=== PATIENT | male | born 2000 | race Caucasian/White ===

== ENCOUNTER 2024-02-09 16:04 | Emergency (ER) | payer SELFPAY ==
[2024-02-09 16:07] VITALS: BP 148/88; PULSE 72; TEMP 36.9; O2SAT 100; BMI 25.1
--- NOTE | 2024-02-09 16:37 | ED_ITS ---
HPI - Skin/Abscess/Foreign Bdy General Chief complaint: Skin/Abscess/Foreign Body Stated complaint: Allergic Reaction Time Seen by Provider: 02/09/24 16:24 Source: patient Mode of arrival: walk-in Limitations: no limitations History of Present Illness HPI narrative: Patient is a 23-year-old male who presents to the emergency department for the evaluation of a rash for the last 2 days over the volar forearms and face. He is concerned this may be poison stevie. No medications prior to arrival. He states the rash is itchy, no drainage. No vision loss or eye pain. No extension of the rash to the mouth. Related Data Previous Rx's ?Medication ?Instructions ?Recorded hydroxyzine HCl 25 mg tablet 25 mg PO Q6H PRN itching #20 tabs 02/09/24 methylprednisolone 4 mg tablets in See Rx Instructions .Route 02/09/24 a dose pack (Medrol (Romain)) .COMPLEX #21 ea Allergies Allergy/AdvReac Type Severity Reaction Status Date / Time No Known Drug Allergies Allergy Verified 02/09/24 16:07 Review of Systems ROS Constitutional Denies: fever or chills Ears, nose, mouth, and throat Denies: throat pain or nasal congestion Cardiovascular Denies: chest pain Respiratory Denies: shortness of breath or cough Gastrointestinal Denies: nausea or vomiting Musculoskeletal Denies: back pain Integumentary/Breast Denies: rash Neurological Denies: headache Hematologic/Lymphatic Denies: easy bruising or easy bleeding Exam Narrative Exam Narrative: Gen.: Awake, alert, in no distress Head: Normocephalic, atraumatic ENT: Moist mucous membranes Respiratory: No respiratory distress Extremities: Moves extremities equally Psych: Normal mood and affect Neuro: No focal neuro deficit Skin: Warm, dry, intact; Faint erythematous linear vesicular rash of the bilateral forearms and minimally of the face of the forehead and right lateral orbit. No eyelid edema, no purulence or extension of the rash to the mucous membranes. No crusting or drainage. Constitutional Vital Signs, click to edit/add: Last Vital Signs Temp 98.4 F 02/09/24 16:07 Pulse 72 02/09/24 16:07 Resp 16 02/09/24 16:07 BP 148/88 H 02/09/24 16:07 Pulse Ox 100 02/09/24 16:07 O2 Del Method Room Air 02/09/24 16:07 Course Vital Signs Vital signs: Vital Signs Temperature 98.4 F 02/09/24 16:07 Pulse Rate 72 02/09/24 16:07 Respiratory Rate 16 02/09/24 16:07 Blood Pressure 148/88 H 02/09/24 16:07 Pulse Oximetry 100 02/09/24 16:07 Oxygen Delivery Method Room Air 02/09/24 16:07 Temperature 98.4 F 02/09/24 16:07 Pulse Rate 72 02/09/24 16:07 Respiratory Rate 16 02/09/24 16:07 Blood Pressure 148/88 H 02/09/24 16:07 Pulse Oximetry 100 02/09/24 16:07 Oxygen Delivery Method Room Air 02/09/24 16:07 MDM - Skin/Abscess/Foreign Bdy MDM Narrative Medical decision making narrative: Exam is consistent with contact dermatitis and the patient was started on a Medrol Dosepak and Atarax for home. First dose of prednisone given in the ER. Follow-up with PCP and return to the ER if symptoms change or worsen Medical Records Attestation: I reviewed the patient's medical records. Discharge Plan Discharge Stand Alone Forms: Portal Instructions Chief Complaint: Skin/Abscess/Foreign Body Clinical Impression: Contact dermatitis Patient Disposition: Home, Self-Care Time of Disposition Decision: 16:36 Condition: Good Prescriptions / Home Meds: New hydroxyzine HCl 25 mg tablet 25 mg PO Q6H PRN (Reason: itching) Qty: 20 0RF methylprednisolone [Medrol (Romain)] 4 mg tablets,dose pack See Rx Instructions .ROUTE .COMPLEX Qty: 21 0RF Rx Instructions: Taper as directed Print Language: Japanese Instructions: Contact Dermatitis (ED) Referrals: Justin Tsang MD [Primary Care Provider] - 1 week Discharge Date/Time: 02/09/24 16:58
[2024-02-09] MEDS: PREDNISONE 20 MG TABLET 60 MG PO (16:57)
== END 2024-02-09 16:58 | disposition home or self-care (01) ==
PROVIDERS: Emergency Provider Emergency Medicine; PCP Family Medicine
DX: L25.9 Unspecified contact dermatitis, unspecified cause (principal)
CPT/HCPCS: 99283